=== PATIENT | female | born 1970 | race African-American/Black ===

== ENCOUNTER 2021-05-05 23:01 | Emergency (ER) | payer OTHER ==
[~2021-05-05] VITALS: Ht 157.5 cm; Wt 81.8 kg
[2021-05-05] MEDS ORDERED: HYD25 PO (23:41)
[2021-05-05] MEDS ORDERED: SERT-162 PO (23:41)
[2021-05-05] MEDS ORDERED: QUET25TA PO (23:41)
[2021-05-06] MEDS ORDERED: ACETAMINOPHEN 500 MG TABLET PO ONE (00:30)
[2021-05-06 00:50] LABS: BASOPHILS % (AUTO) 0.2 % (0.0-2.0); EOSINOPHILS % (AUTO) 3.7 % (1.0-6.0); HEMATOCRIT 37.4 % (36-46); HEMOGLOBIN 12.4 g/dL (12.0-16.0); LYMPHOCYTES # (AUTO) 1.4 K/uL (1.0-4.8); MEAN CORPUSCULAR HEMOGLOBIN 30.3 pg (26.0-34.0); MEAN CORPUSCULAR HGB CONC 33.1 G/dL (31.0-37.0); MEAN CORPUSCULAR VOLUME 92 fL (80-100); MONOCYTES # (AUTO) 0.3 K/uL (0.1-1.0); MONOCYTES % (AUTO) 8.5 % (2.0-9.0); NEUTROPHILS # (AUTO) 1.7 K/uL (1.8-7.7); NEUTROPHILS % (AUTO) 48.6 % (40.0-70.0); PLATELET COUNT (AUTO) 186 K/uL (150-450); RED BLOOD CELL COUNT(AUTO) 4.08 MIL/uL (4.00-5.20); RED CELL DISTRIBUTION WIDTH 13.7 % (11.5-14.5)
[2021-05-06 00:52] LABS: APPEARANCE,URINE CLEAR (CLEAR); BILIRUBIN,URINE NEGATIVE (NEGATIVE); GLUCOSE, URINE (UA) NEGATIVE (NEGATIVE); KETONES,URINE NEGATIVE (NEGATIVE); LEUKOCYTE ESTERASE ,URINE TRACE (NEGATIVE); NITRATE,URINE NEGATIVE (NEGATIVE); OCCULT BLOOD,URINE TRACE (NEGATIVE); PROTEIN,URINE NEGATIVE (NEGATIVE); UROBILINOGEN,URINE 0.2 mg/dL (<=1.0)
[2021-05-06 00:59] LABS: ANION GAP 5 mmol/L (8-16); CALCIUM, TOTAL 8.8 mg/dL (8.8-10.5); CARBON DIOXIDE 27 mmol/L (22-29); CHLORIDE 108 mmol/L (98-107); CREATININE 0.56 mg/dL (0.60-1.30); GLOMERULAR FILTR. RATE CALC > 60 mL/min (>60); GLUCOSE,RANDOM 104 mg/dL (70-110); POTASSIUM 3.9 mmol/L (3.5-5.1); SODIUM SERUM 140 mmol/L (136-145); UREA NITROGEN, BLOOD 19 mg/dL (7-18)
[2021-05-06 01:04] LABS: D-DIMER 0.57 mg/L FEU (0.00-0.50); PROTHROMBIN TIME 10.5 SEC (9.4-11.6)
[2021-05-06 01:12] LABS: BACTERIA,URINE None Seen /HPF (None Seen); SQUAMOUS EPITHELIAL CELL,UR Rare /LPF (None Seen)
[2021-05-06 01:17] LABS: B-TYPE NATRIURETIC PEPTIDE 7 pg/mL (0-100)
[2021-05-06 01:22] LABS: ALANINE AMINOTRANSFERASE 22 U/L (12-78); ALBUMIN 3.5 g/dL (3.4-5.0); ALKALINE PHOSPHATASE 63 U/L (46-116); ASPARTATE AMINOTRANSFERASE 12 U/L (15-37); BILIRUBIN,TOTAL 0.2 mg/dL (0.1-1.0); CREATINE KINASE, TOTAL ONLY 108 U/L (26-192); TOTAL PROTEIN, SERUM 7.3 g/dL (6.4-8.2)
[2021-05-06] MEDS ORDERED: IOHEXOL 350 MG/ML 100 ML VIAL ONE (01:28)
[2021-05-06] MEDS ORDERED: SODIUM CHLORIDE 0.9% 100 ML ONE (01:28)
[2021-05-06] MEDS ORDERED: CEPHALEXIN MONOHYDRATE 500 MG CAPSULE PO ONE (03:45)
[2021-05-06 04:39] VITALS: BP 129/69
== END 2021-05-06 04:44 | disposition home or self-care (01) ==
LOC: EMS 23:01
DX: R60.0 Localized edema (principal); M79.89 Other specified soft tissue disorders; F41.9 Anxiety disorder, unspecified; F32.9 Major depressive disorder, single episode, unspecified; I10 Essential (primary) hypertension; F17.210 Nicotine dependence, cigarettes, uncomplicated; Z90.710 Acquired absence of both cervix and uterus
CPT/HCPCS: 36415; 71045; 71275; 80053; 81001; 82550; 83880; 84484; 85025; 85379; 85610; 85730; 87086; 93005; 93970; 99285; A9575; J7050

== ENCOUNTER 2021-07-02 00:21 | Emergency (ER) | payer MEDICAID ==
[~2021-07-02] VITALS: Ht 157.5 cm; Wt 90.9 kg
[~2021-07-02 00:21] MED LIST: HYD25 PO; QUET25TA PO; SERT-162 PO
[2021-07-02] MEDS ORDERED: AZITHROMYCIN 500 MG TABLET PO ONE (03:00)
[2021-07-02] MEDS ORDERED: CefTRIAXone SODIUM 1 GM/VIAL IM ONE (03:00)
[2021-07-02] MEDS ORDERED: MetroNIDAZOLE 500 MG TABLET PO ONE (03:00)
[2021-07-02] MEDS ORDERED: LIDOCAINE/PF 1% 2 ML VIAL IM ONE (03:00)
[2021-07-02 03:04] VITALS: BP 137/76
== END 2021-07-02 03:31 | disposition home or self-care (01) ==
LOC: EMS 00:22
DX: A59.9 Trichomoniasis, unspecified (principal); N76.0 Acute vaginitis; I10 Essential (primary) hypertension; F32.9 Major depressive disorder, single episode, unspecified; F41.9 Anxiety disorder, unspecified; F17.210 Nicotine dependence, cigarettes, uncomplicated; Z79.899 Other long term (current) drug therapy; Z20.822 Contact with and (suspected) exposure to COVID-19
CPT/HCPCS: 87210; 87491; 87591; 96372; 99284; A9575; J0696; J3490; U0003